=== PATIENT | female | born 1980 | race Caucasian/White ===

== ENCOUNTER 2020-06-28 10:02 | Outpatient (REF) | payer OTHER, SELFPAY ==
[2020-06-29 13:32] LABS: C. trachomatis RNA TMA NOT DETECTED (NOT DETECTED); N. gonorrhoeae RNA TMA NOT DETECTED (NOT DETECTED)
== END 2020-06-28 10:03 | disposition home or self-care (01) ==
LOC: HO.LAB 10:02
PROVIDERS: Visit Provider Advanced Practice Midwife
DX: Z01.419 Encounter for gynecological examination (general) (routine) without abnormal findings (principal); Z20.2 Contact with and (suspected) exposure to infections with a predominantly sexual mode of transmission
CPT/HCPCS: 36415; 87491; 87591

== ENCOUNTER 2020-07-12 13:14 | Outpatient (REF) | payer OTHER, SELFPAY | END 2020-07-12 13:15 | disposition home or self-care (01) | LOC: HO.LAB 13:14 | PROVIDERS: Visit Provider Internal Medicine | DX: Z20.822 Contact with and (suspected) exposure to COVID-19 (principal) | CPT/HCPCS: 36415; C9803; U0003; U0005 ==

== ENCOUNTER 2020-07-29 09:06 | Outpatient (REF) | payer OTHER, SELFPAY ==
[2020-07-29 09:49] LABS: MANUAL DIFF FLAG NO
[2020-07-29 09:59] LABS: Glucose Urine UA NEG (NEG); Leukocyte Esterase Urine NEG (NEG); Nitrite Urine NEG (NEG); Specific Gravity - Urine >= 1.030 (1.005-1.025); Urine Blood 1+ (NEG); Urine Ketones NEG (NEG); Urine Protein NEG (NEG-TRACE)
[2020-07-29 10:01] LABS: Basophils Absolute Auto 0.1 X10*3/uL (0.0-0.2); Basophils Percent Auto 0.4 % (0-2); Eosinophils Absolute Auto 0.2 X10*3/uL (0.0-0.4); Eosinophils Percent Auto 1.6 % (0-4); Hematocrit 31.2 % (37-47); Hemoglobin 8.8 g/dl (12.0-16.0); Imm Gran Abs Auto 0.05 X10*3/uL (0.00-0.03); Imm Gran Pct Auto 0.4 % (0.0-0.4); Lymphocytes Absolute Auto 3.5 X10*3/uL (1.2-4.9); Mean Corpuscular HGB Conc 28.2 g/dl (31.0-35.0); Mean Corpuscular Hemoglobin 20.3 pg (27.0-33.0); Mean Corpuscular Volume 71.9 fL (80-98); Mean Platelet Volume 10.2 fL (9.4-12.3); Monocytes Absolute Auto 0.9 X10*3/uL (0.1-1.2); Monocytes Percent Auto 6.9 % (2-11); Neutrophils Absolute Auto 8.8 X10*3/uL (2.0-8.3); Neutrophils Percent Auto 64.7 % (45-73); Platelet Count 607 X10*3/uL (160-400); Red Blood Count 4.34 X10*6/uL (4.20-5.50); White Blood Count 13.5 X10*3/uL (4.8-10.8)
[2020-07-29 10:06] LABS: Appearance Urine CLEAR; Color Urine YELLOW
[2020-07-29 10:21] LABS: RBC Urine 0-2 /HPF (0); WBC Urine 0 /HPF (0-4)
[2020-07-29 10:31] LABS: Alanine Aminotransferase 13 U/L (0-31); Albumin Level 4.3 g/dL (3.5-5.0); Alkaline Phosphatase 87 U/L (39-117); Anion Gap 15 (12-20); Aspartate Amino Transferase 14 U/L (5-31); Bilirubin Total 0.4 mg/dL (0.0-1.0); Blood Urea Nitrogen 17 mg/dL (9-16); Calcium 9.3 mg/dL (8.4-10.2); Carbon Dioxide 24 mmol/L (22-29); Chloride 106 mmol/L (96-108); Cholesterol 170 mg/dL; Estimated Glomerular Filt Rate > 60; Glucose Fasting 92 mg/dL (60-99); HDL Cholesterol 49 mg/dL; LDL Cholesterol Calculated 98 mg/dl; Potassium 4.6 mmol/L (3.3-5.1); Sodium 140 mmol/L (135-145); Triglycerides 116 mg/dL
[2020-07-29 10:45] LABS: HIV AB/AG Nonreactive (Nonreactive); HIV Num 1 0.06 S/CO (0.00-0.99); ~HepC Num1 0.14 S/CO (0.00-0.79); ~Hepatitis C Antibody Nonreactive (Nonreactive)
[2020-07-29 10:48] LABS: HBsAGNum1 0.23 S/CO (0.00-0.99); Hepatitis B Surface Antigen Negative (Negative)
[2020-07-29 10:51] LABS: TSH reflex Free T4 4.46 uIU/mL (0.32-4.0)
[2020-07-29 11:43] LABS: Free T4 (Free Thyroxine) 0.78 ng/dL (0.71-1.85)
[2020-07-30 04:10] LABS: Syphilis Screen Nonreactive (Nonreactive)
[2020-07-30 14:01] LABS: C. trachomatis RNA TMA NOT DETECTED (NOT DETECTED)
[2020-07-30 14:02] LABS: N. gonorrhoeae RNA TMA NOT DETECTED (NOT DETECTED)
== END 2020-07-29 09:07 | disposition home or self-care (01) ==
LOC: HO.LAB 09:06
PROVIDERS: PCP Internal Medicine; Visit Provider Advanced Practice Midwife
DX: Z00.00 Encounter for general adult medical examination without abnormal findings (principal); Z20.2 Contact with and (suspected) exposure to infections with a predominantly sexual mode of transmission
CPT/HCPCS: 36415; 80053; 80061; 81001; 81003; 84439; 84443; 85025; 86780; 86803; 87340; 87389; 87491; 87591

== ENCOUNTER 2021-01-23 01:09 | Emergency (ER) | payer OTHER, SELFPAY ==
--- NOTE | ~2021-01-23 | XR_ITS ---
EXAMINATION: XR KNEE, LEFT XR ANKLE, LEFT CLINICAL INFORMATION: Fall. Pain. COMPARISON: None TECHNIQUE: 4 views of the left knee. 3 views of the left ankle. FINDINGS: Left knee: No fracture or subluxation. Compartmental joint spaces are maintained. No joint effusion. The soft tissues are unremarkable. Left ankle: No fracture or dislocation. The ankle mortise is congruent. No ankle joint effusion. The soft tissues are unremarkable. XR/XR knee LT 3V IMPRESSION: No fracture or malalignment involving the left knee or ankle.
--- NOTE | ~2021-01-23 | XR_ITS ---
EXAMINATION: XR KNEE, LEFT XR ANKLE, LEFT CLINICAL INFORMATION: Fall. Pain. COMPARISON: None TECHNIQUE: 4 views of the left knee. 3 views of the left ankle. FINDINGS: Left knee: No fracture or subluxation. Compartmental joint spaces are maintained. No joint effusion. The soft tissues are unremarkable. Left ankle: No fracture or dislocation. The ankle mortise is congruent. No ankle joint effusion. The soft tissues are unremarkable. XR/XR ankle LT 2V IMPRESSION: No fracture or malalignment involving the left knee or ankle.
[2021-01-23 01:34] VITALS: BP 139/80; PULSE 110; RESP 16; TEMP 37.1; O2SAT 100; BMI 25.4
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
== END 2021-01-23 04:23 | disposition home or self-care (01) ==
PROVIDERS: Emergency Provider Emergency Medicine; PCP Internal Medicine
DX: M25.562 Pain in left knee (principal); M25.572 Pain in left ankle and joints of left foot
CPT/HCPCS: 73562; 73600; 99283; 99284

== ENCOUNTER 2021-06-18 10:42 | Emergency (ER) | payer OTHER, SELFPAY ==
[2021-06-18 11:05] VITALS: BP 128/73; PULSE 71; RESP 18; TEMP 36.9; O2SAT 99; BMI 24.6
[2021-06-18 12:25] LABS: COVID-19 Test Positive (Negative); IDNOW Serial# 9DD0AD1C
--- NOTE | 2021-06-18 15:35 | ED_ITS ---
HPI - URI/Sore Throat General Chief Complaint: Upper Respiratory Symptoms Stated Complaint: muscle pain sore throat Time Seen by Provider: 06/18/21 15:35 Source: patient Mode of arrival: ambulatory Limitations: no limitations History of Present Illness HPI Narrative: 41 yr old female presents requesting covid testing. She is experiencing a sore throat, headache, body aches, fatigue, dry cough x3 days. She has had multiple sick contacts at work recently. Fully vaccinated with two doses of pfizer. Denies SOB, CP, MARES, weakness. Eating and drinking well. In good spirits. No other complaints at this time. As she was sitting here in the waiting room were called her to let her know that she was COVID positive. Denies all red flag symptoms pertaining to headache such as vision changes, dizziness, trauma to the head. MD elicited complaint: cough and sore throat Onset (ago): day(s) (Three) Consistency: constant Severity: moderate Able to tolerate fluids by mouth: Yes Exacerbating factors: nothing Relieving factors: nothing Context: sick contacts (At work) Associated symptoms: myalgias, headache and sore throat Treatments prior to arrival: none Related Data Previous Rx's Medication Instructions Recorded benzonatate 100 mg capsule 100 mg PO BID PRN #30 cap 06/18/21 Allergies Allergy/AdvReac Type Severity Reaction Status Date / Time No Known Allergies Allergy Verified 06/18/21 11:05 Review of Systems Review of Systems: Constitutional : no Fever, positive Chills, positive fatigue, positive Malaise ENT/Mouth : positive sore throat, no runny nose Eyes: No Discharge Cardiovascular : No Chest Pain, No SOB Respiratory : No Cough, No Sputum Gastrointestinal : No Nausea, No Vomiting, No Diarrhea Genitourinary : No Dysuria, No Urinary Frequency Musculoskeletal : positive Myalgia Skin : No rash Neuro : No Headache Yes all other systems are reviewed and are negative [facility] Past Medical History Attestation statement: The following information was validated with the patient. Source: old records reviewed and nursing notes reviewed Medical History No significant past medical history Surgical History History of section History of tubal ligation Family History Family History (Updated 06/28/20 @ 10:31 by Elisha King CNM) Father Medical history unknown Mother Breast cancer, Onset Age: 58 Diabetes Hypertension Maternal Uncle Cancer Social History Social History (Updated 06/28/20 @ 10:07 by RUTHY Miguel) Alcohol intake: never Patient Tobacco Use Status: Never used Tobacco Advance Directives: No Advance Directives Information Provided: No Patient : No Gender identity: Female Physical Exam Vital Signs: Vital Signs: Last Vital Signs Temp 98.4 F 06/18/21 11:05 Pulse 71 06/18/21 11:05 Resp 18 06/18/21 11:05 BP 128/73 06/18/21 11:05 Pulse Ox 99 06/18/21 11:05 BMI result Body Mass Index 24.6 VSS Appearance: Alert.? Oriented X3.? No acute distress.? Head: Normocephalic, atraumatic, no step-offs or deformities Eyes: Pupils equal, round and reactive to light.?.? Neck: Normal inspection.? Neck supple.? CVS: Normal heart rate and rhythm.? Pulses normal.? Respiratory: No respiratory distress.? Breath sounds normal.? Abdomen: Soft and nontender.? Skin: Skin warm and dry.? Normal skin color.? Normal skin turgor.? Extremities: No lower extremity edema.? No calf ttp. 5/5 strength to bilateral upper and lower extremities Neuro: Oriented X 3.? No motor deficit.? No sensory deficit. Course Reevaluation(s) Reevaluation #1: Patient is noted to be COVID positive.? Vital signs are stable however.? I have given patient strict return precautions.? I have educated on diagnosis and treatment plan.? I have given them red flag symptoms and have told him to return with new or worsening symptoms.? I have outlined these on their discharge. Unlikely that this is ACS, patient denies chest pain. Lungs are clear unlikely pneumonia. Patient's vital signs stable, patient is not tachycardic, tachypneic or hypoxic, no calf tenderness to palpation, unlikely PE. Time: 15:44 MDM - URI/Sore Throat MDM Narrative Medical decision making narrative: [id number] 41 year old female presents for covid testing. Fully vaccinated. Experiencing sore throat, headache, body aches. Sick contacts Physical exam benign Plan at this time is to obtain a COVID test Medical Records Attestation: I reviewed the patient's medical records. Lab Data Attestation: I reviewed the patient's lab results. Labs: Lab Results 06/18/21 Range/Units 11:47 COVID-19 (RACHEL) Positive A (Negative) COVID-19 Clin Com See Note Critical Care Time Critical Care Time Critical Care Time: No Discharge Plan Discharge Clinical Impression: COVID-19 Patient Disposition: Home, Self-Care Instructions: COVID-19 (Coronavirus Disease 2019) (ED) Additional Instructions: Take your medications as prescribed.? If you were prescribed antibiotics today, it is important that you take your medication to their entirety, do not skip any doses, do not finish them early. Follow-up with your primary care provider/adjustment clerk this week. Return to the emergency department with new or worsening symptoms. In case of emergency call 911? You tested positive for COVID-19 today. -Isolate/quarantine for 5 days, continue wearing a mask for 5 days after.Before leaving quarantine ensure you are fever free and symptom free for at least 72 hours. Stay home, social distance, clean all surfaces. If you experience chest pain, shortness of breath, weakness, high fevers/chills, headache or dizziness please go to an emergency department for evaluation. - You can purchase a pulse oximeter at a local pharmacy or grocery store to check your oxygen levels at home if they go below 94%? please go to the emergency department or see a medical professional. Drink plenty of fluids, and rest. - If you can tolerate these medications, and if you are not allergic to them or have any contraindications to taking them you can take ibuprofen every 6 hours, tylenol every 4 as needed for body aches/fever. -Call 911 in case of an emergency, or go to an emergency department. -Stay safe! Prescriptions: New benzonatate 100 mg capsule 100 mg PO BID PRN (Reason: cough) Qty: 30 RF: 0 Referrals: Carson Jaramillo MD [Primary Care Provider] - 2 days Stand Alone Forms: Work/School Release
== END 2021-06-18 15:55 | disposition home or self-care (01) ==
PROVIDERS: Emergency Provider Emergency Medicine; PCP Internal Medicine
DX: U07.1 COVID-19 (principal)
CPT/HCPCS: 87635; 99283

== ENCOUNTER 2025-02-16 18:47 | Emergency (ER) | payer OTHER, SELFPAY ==
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
--- NOTE | ~2025-02-16 | CT_ITS ---
CLINICAL HISTORY: abdominal pain CT abdomen and pelvis with contrast Comparison: None provided. Findings: No acute findings within visualized lung bases. Liver, spleen, adrenal glands, and kidneys are unremarkable. Cholelithiasis. Gallbladder is otherwise nondistended. Unremarkable urinary bladder. Retroverted uterus. Small amount of free pelvic fluid. Suspected corpus luteum cyst on the left side. Visualized vascular structures are unremarkable. Stomach is nondistended. Small bowel is normal caliber. No obstruction. Colon appears within normal limits. No acute appendicitis. No pathologically enlarged lymph nodes. No acute osseous abnormality. Impression: 1. Free pelvic fluid perhaps large volume than what would be expected for normal physiologic finding therefore possibility of an adnexal cyst rupture may be considered. If there is degree of clinical concern for pelvic etiology of patient's symptoms, consider further evaluation with pelvic ultrasound. 2. Additional findings as above. This document has been electronically signed by: Stacey Junior MD on 02/17/2025 01:46:37
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
[2025-02-16 19:14] VITALS: BP 148/82; PULSE 89; O2SAT 100
[2025-02-16 19:21] VITALS: BP 143/89; PULSE 96; RESP 16; TEMP 36.4; O2SAT 100; BMI 26.9
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
[2025-02-16 20:14] LABS: MANUAL DIFF FLAG NO
[2025-02-16 20:16] LABS: Hematocrit 30.2 % (37.0-47.0); Hemoglobin 8.7 g/dl (12.0-16.0); Imm Gran Abs Auto 0.15 X10*3/uL (0.00-0.03); Imm Gran Pct Auto 0.6 % (0.0-0.4); Lymphocytes Absolute Auto 2.9 X10*3/uL (1.2-4.9); Mean Corpuscular HGB Conc 28.8 g/dl (31.0-35.0); Mean Corpuscular Hemoglobin 19.5 pg (27.0-33.0); Mean Corpuscular Volume 67.7 fL (80.0-98.0); NRBC Abs Auto 0.000 X10*3/uL (0.0-0.012); NRBC Pct Auto 0.0 /100WBC (0.0-0.2); Platelet Count 614 X10*3/uL (160-400); Red Blood Count 4.46 X10*6/uL (4.20-5.50); White Blood Count 24.3 X10*3/uL (4.8-10.8)
--- NOTE | 2025-02-16 21:26 | PC.NURSE ---
called pharmacy as [facility] did not have 20 mL lidocaine, order changed to 10 mL, provider aware, medication given to provider.
--- OUTSIDE RECORDS SUMMARY | 2025-02-16 21:54 | XMS_ITS | Clinical Summary ---
Author Organization [facility] Address [address] [place] [id number] Phone Care Team Providers Care Binder And Wrapper Packer Name Role Phone Pcp, Unknown Primary Care Provider Unavailabl e Social History Tobacco Use Types Packs/Day Years Used Date Smoking Tobacco: Never Assessed Education Answer Date Recorded Are you interested in more education? Not on joe e 09/29/2022 Are you concerned about learning? Not on file 09/29/2022 No 09/29/2022 No 09/29/2022 Digital Access Answer Date Recorded No 10/31/2022 No 10/31/2022 Reliable internet access at home? Not on file 10/31/2022 Device with a working camera? Not on file Comments Unknown Sex and Gender Information Value Date Recorded Sex Assigned at Not on file Legal Sex Female 4:18 PM EDT Gender Identity Not on file Sexual Orientation Not on file Plan of Treatment Not on file Medical Devices Not on file Care Teams Binder And Wrapper Packer Relationship Specialty Start Date End Date Pcp, Unknown PCP - General 10/21/19 Additional Source Comments The information contained in this document represents components of the legal health record. It is not the complete legal health record.[facility]
[2025-02-16] MEDS: Lidocaine HCl 1%/Epi 1:100,000 10 ML VIAL INFILTRATI (23:17)
[2025-02-16] MEDS: iohexoL 350 MG/ML 100 ML INFUS..BTL 85 ML IV (23:42)
--- NOTE | 2025-02-16 23:56 | PC.NURSE ---
pt L elbow irrigated with NS and wrapped stick pad.
--- NOTE | 2025-02-17 01:00 | PC.NURSE ---
pt request something for pain, provider aware.
--- NOTE | 2025-02-17 01:21 | PC.NURSE ---
pt medicated per MAR.
[2025-02-17 02:10] VITALS: BP 120/78; PULSE 95; RESP 16; TEMP 36.8; O2SAT 100
== END 2025-02-17 02:14 | disposition home or self-care (01) ==
PROVIDERS: Emergency Provider Student in an Organized Health Care Education/Training Program; PCP Internal Medicine
DX: S40.812A Abrasion of left upper arm, initial encounter (principal); M25.562 Pain in left knee; V23.49XA Other motorcycle driver injured in collision with car, pick-up truck or van in traffic accident, initial encounter; Y93.89 Activity, other specified; Y92.488 Other paved roadways as the place of occurrence of the external cause; Y99.8 Other external cause status
CPT/HCPCS: 36415; 70450; 72125; 73080; 73502; 73560; 74177; 85025; 99284; 99285; J2004; Q9967

== ENCOUNTER → 2025-02-16 20:22 | Outpatient (BNV) | payer OTHER, SELFPAY | PROVIDERS: Emergency Provider Student in an Organized Health Care Education/Training Program; PCP Internal Medicine; Visit Provider Radiology Diagnostic Radiology | DX: M25.552 Pain in left hip (principal); S40.812A Abrasion of left upper arm, initial encounter; S80.212A Abrasion, left knee, initial encounter; V89.2XXA Person injured in unspecified motor-vehicle accident, traffic, initial encounter | CPT/HCPCS: 70450; 72125; 73080; 73502; 73560; 74177 ==

== ENCOUNTER 2025-02-19 20:34 | Emergency (ER) | payer OTHER, SELFPAY ==
[2025-02-19 21:15] VITALS: BP 138/75; PULSE 90; RESP 18; TEMP 36.8; O2SAT 100; BMI 28.1
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
--- OUTSIDE RECORDS SUMMARY | 2025-02-19 21:53 | XMS_ITS | Clinical Summary ---
Author Organization [facility] Address [address] [place] [phone] Phone Care Team Providers Care Environmental Monitoring Technician Name Role Phone Pcp, Unknown Primary Care [...] Medical Devices Not on file Care Teams Environmental Monitoring Technician Relationship Specialty Start Date End Date Pcp, Unknown PCP - General 10/21/19 Additional Source Comments The information contained in this document represents components of the legal health record. It is not the complete legal health record.[facility]
[2025-02-19 22:24] VITALS: BP 138/75; PULSE 90; RESP 18; TEMP 36.8; O2SAT 100
== END 2025-02-19 22:24 | disposition home or self-care (01) ==
PROVIDERS: Emergency Provider Emergency Medicine; PCP Internal Medicine
DX: L03.114 Cellulitis of left upper limb (principal)
CPT/HCPCS: 99282; 99283

== ENCOUNTER 2025-02-21 15:43 | Emergency (ER) | payer OTHER, SELFPAY ==
--- NOTE | ~2025-02-21 | US_ITS ---
CLINICAL HISTORY: post traumatic swelling, r o dvt Left upper extremity venous duplex ultrasound Study was performed using color and spectral waveform analysis. Comparison: None. Findings: Deep veins are compressible with flow and augmentation. No significant adenopathy. Impression: No evidence for DVT This document has been electronically signed by: Malik Montez MD on 02/21/2025 19:37:28
[2025-02-21 16:05] VITALS: BP 132/67; PULSE 91; RESP 18; TEMP 36.6; O2SAT 100; BMI 28.3
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
--- OUTSIDE RECORDS SUMMARY | 2025-02-21 16:33 | XMS_ITS | Clinical Summary ---
Author Organization [facility] Address [address] [place] [phone] Phone Care Team Providers Care Institutional Commodity Analyst Name Role Phone Pcp, Unknown Primary Care [...] Medical Devices Not on file Care Teams Institutional Commodity Analyst Relationship Specialty Start Date End Date Pcp, Unknown PCP - General 10/21/19 Additional Source Comments The information contained in this document represents components of the legal health record. It is not the complete legal health record.[facility]
[2025-02-21] MEDS: oxyCODONE HCl Immed Release 5 MG TABLET PO (17:06)
--- NOTE | 2025-02-21 17:15 | PC.NURSE ---
Pt s/p ASSISTED. Here for wound check to Lt knee. Serous drainage. No erythema/purulent drainage.
--- NOTE | 2025-02-21 17:47 | PC.NURSE ---
Bacitracin applied to left knee. Dressed and wrapped per provider order
[2025-02-21 21:49] VITALS: BP 125/62; PULSE 94; RESP 16; TEMP 36.8; O2SAT 100
[2025-02-21 22:44] VITALS: BP 125/62; PULSE 94; RESP 16; TEMP 36.8; O2SAT 100
== END 2025-02-21 22:45 | disposition home or self-care (01) ==
PROVIDERS: Emergency Provider Emergency Medicine Emergency Medical Services; PCP Internal Medicine
DX: L03.90 Cellulitis, unspecified (principal); M79.89 Other specified soft tissue disorders; Z48.00 Encounter for change or removal of nonsurgical wound dressing
CPT/HCPCS: 93971; 96372; 99284

== ENCOUNTER → 2025-02-21 16:52 | Outpatient (BNV) | payer OTHER, SELFPAY | PROVIDERS: Emergency Provider Emergency Medicine Emergency Medical Services; PCP Internal Medicine; Visit Provider Radiology Diagnostic Radiology | DX: R22.32 Localized swelling, mass and lump, left upper limb (principal) | CPT/HCPCS: 93971 ==

== ENCOUNTER 2025-02-23 14:54 | Outpatient (AMB) | payer OTHER, SELFPAY ==
[2025-02-23 15:09] VITALS: BP 118/86; PULSE 93; TEMP 36.3; O2SAT 100; BMI 28.1
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
== END 2025-02-23 15:41 | disposition home or self-care (01) ==
LOC: HO.HMCH 14:55
PROVIDERS: PCP Internal Medicine; Visit Provider Internal Medicine
DX: M25.512 Pain in left shoulder (principal); S40.812A Abrasion of left upper arm, initial encounter; S80.812A Abrasion, left lower leg, initial encounter; Z04.3 Encounter for examination and observation following other accident; V89.2XXA Person injured in unspecified motor-vehicle accident, traffic, initial encounter

== ENCOUNTER → 2025-02-23 14:54 | Outpatient (BNVA) | payer OTHER, SELFPAY | PROVIDERS: PCP Internal Medicine; Visit Provider Internal Medicine | DX: Z00.00 Encounter for general adult medical examination without abnormal findings (principal); M54.50 Low back pain, unspecified; R79.89 Other specified abnormal findings of blood chemistry; Z87.828 Personal history of other (healed) physical injury and trauma | CPT/HCPCS: 96127 ==

== ENCOUNTER 2025-03-02 11:42 | Emergency (ER) | payer OTHER, SELFPAY ==
[2025-03-02 12:01] VITALS: BP 122/73; PULSE 100; RESP 16; TEMP 36.7; O2SAT 100; BMI 27.3
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
[2025-03-02 12:40] VITALS: BP 122/73; PULSE 100; RESP 16; TEMP 36.7; O2SAT 100
--- OUTSIDE RECORDS SUMMARY | 2025-03-02 13:45 | XMS_ITS | Clinical Summary ---
Author Organization [facility] Address [address] [place] [id number] Phone Care Team Providers Care Reading Tutor Name Role Phone Pcp, Unknown Primary Care [...] Medical Devices Not on file Care Teams Reading Tutor Relationship Specialty Start Date End Date Pcp, Unknown PCP - General 10/21/19 Additional Source Comments The information contained in this document represents components of the legal health record. It is not the complete legal health record.[facility]
== END 2025-03-02 12:42 | disposition home or self-care (01) ==
PROVIDERS: Emergency Provider Emergency Medicine; PCP Internal Medicine
DX: Z48.02 Encounter for removal of sutures (principal)
CPT/HCPCS: 99282

== ENCOUNTER 2025-03-02 12:48 | Outpatient (REF) | payer OTHER, SELFPAY ==
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
== END 2025-03-02 12:49 | disposition home or self-care (01) ==
LOC: HO.XRAY 12:48
PROVIDERS: PCP Internal Medicine; Visit Provider Internal Medicine
DX: T14.8XXD Other injury of unspecified body region, subsequent encounter (principal); V89.2XXD Person injured in unspecified motor-vehicle accident, traffic, subsequent encounter
CPT/HCPCS: 73030

== ENCOUNTER → 2025-03-02 12:55 | Outpatient (BNV) | payer OTHER, SELFPAY | PROVIDERS: PCP Internal Medicine; Visit Provider Radiology Diagnostic Radiology | DX: S42.92XD Fracture of left shoulder girdle, part unspecified, subsequent encounter for fracture with routine healing (principal); V89.2XXD Person injured in unspecified motor-vehicle accident, traffic, subsequent encounter | CPT/HCPCS: 73030 ==

== ENCOUNTER 2025-03-09 13:01 | Outpatient (AMB) | payer OTHER, SELFPAY ==
[2025-03-09 13:09] VITALS: BMI 27.3
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
--- OUTSIDE RECORDS SUMMARY | 2025-03-09 15:22 | XMS_ITS | Clinical Summary ---
Author Organization [facility] Address [address] [place] [id number] Phone Care Team Providers Care Office Manager Receptionist Name Role Phone Pcp, Unknown Primary Care [...] Medical Devices Not on file Care Teams Office Manager Receptionist Relationship Specialty Start Date End Date Pcp, Unknown PCP - General 10/21/19 Additional Source Comments The information contained in this document represents components of the legal health record. It is not the complete legal health record.[facility]
== END 2025-03-09 13:45 | disposition home or self-care (01) ==
LOC: HO.HOS 13:02
PROVIDERS: PCP Internal Medicine; Visit Provider Physician Assistant
DX: S42.255A Nondisplaced fracture of greater tuberosity of left humerus, initial encounter for closed fracture (principal)
CPT/HCPCS: 99203; G2211

== ENCOUNTER 2025-03-09 13:01 | Outpatient (REF) | payer OTHER, SELFPAY ==
--- NOTE | ~2025-03-09 | XR_ITS ---
EXAMINATION: XR SHOULDER, LEFT CLINICAL INFORMATION: M25.512 - Pain in left shoulder COMPARISON: None available. TECHNIQUE: Two views of the left shoulder. FINDINGS: Redemonstrated nondisplaced fracture of the greater tuberosity. Stable position and alignment. No new acute fractures seen. No dislocation. Joint spaces are maintained. Soft tissues unremarkable. XR/XR shoulder LT min 2V IMPRESSION: Stable positioning of the nondisplaced fracture of the greater tuberosity. Electronically signed by: Arsh Galan MD 03/09/2025 01:39 PM EDT
== END 2025-03-09 13:02 | disposition home or self-care (01) ==
LOC: HO.HOSX 13:01
PROVIDERS: PCP Internal Medicine; Visit Provider Physician Assistant
DX: S42.252A Displaced fracture of greater tuberosity of left humerus, initial encounter for closed fracture (principal); V23.49XA Other motorcycle driver injured in collision with car, pick-up truck or van in traffic accident, initial encounter; Y93.55 Activity, bike riding
CPT/HCPCS: 73030

== ENCOUNTER → 2025-03-09 13:13 | Outpatient (BNV) | payer OTHER, SELFPAY | PROVIDERS: PCP Internal Medicine; Visit Provider Radiology Diagnostic Ultrasound | DX: S42.255A Nondisplaced fracture of greater tuberosity of left humerus, initial encounter for closed fracture (principal) | CPT/HCPCS: 73030 ==

== ENCOUNTER 2025-04-03 13:53 | Outpatient (REF) | payer OTHER, SELFPAY ==
--- OUTSIDE RECORDS SUMMARY | 2025-04-03 14:46 | XMS_ITS | Clinical Summary ---
Author Organization [facility] Address [address] [place] [phone] Phone Care Team Providers Care Baccarat Dealer Name Role Phone Pcp, Unknown Primary Care [...] Medical Devices Not on file Care Teams Baccarat Dealer Relationship Specialty Start Date End Date Pcp, Unknown PCP - General 10/21/19 Additional Source Comments The information contained in this document represents components of the legal health record. It is not the complete legal health record.[facility]
== END 2025-04-03 13:54 | disposition home or self-care (01) ==
LOC: HO.MAMMO 13:53
PROVIDERS: PCP Internal Medicine; Visit Provider Internal Medicine
DX: Z13.89 Encounter for screening for other disorder (principal)

== ENCOUNTER 2025-04-20 09:06 | Outpatient (REF) | payer OTHER, SELFPAY ==
--- NOTE | ~2025-04-20 | XR_ITS ---
EXAMINATION: XR SHOULDER, LEFT CLINICAL INFORMATION: M25.512 - Pain in left shoulder COMPARISON: X-ray 10 6] 25 TECHNIQUE: Two views of the left shoulder. FINDINGS: Redemonstrated nondisplaced fracture of the greater tuberosity. Stable position and alignment. The fracture plane appears indistinct. No new acute fracture seen. No dislocation. Joint spaces are maintained. No abnormal soft tissue calcification. XR/XR shoulder LT min 2V IMPRESSION: Healing changes in the nondisplaced fracture of the greater tuberosity. Electronically signed by: Arsh Gaaln MD 04/20/2025 01:56 PM МАРИЯ RP
== END 2025-04-20 09:07 | disposition home or self-care (01) ==
LOC: HO.HOSX 09:06
PROVIDERS: Visit Provider Physician Assistant
DX: S42.252D Displaced fracture of greater tuberosity of left humerus, subsequent encounter for fracture with routine healing (principal)
CPT/HCPCS: 73030

== ENCOUNTER 2025-04-20 09:45 | Outpatient (AMB) | payer OTHER, SELFPAY ==
[2025-04-20 10:05] VITALS: BMI 27.3
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
== END 2025-04-20 10:42 | disposition home or self-care (01) ==
LOC: HO.HOS 09:45
PROVIDERS: PCP Internal Medicine; Visit Provider Physician Assistant
DX: S42.253A Displaced fracture of greater tuberosity of unspecified humerus, initial encounter for closed fracture (principal)
CPT/HCPCS: 99024

== ENCOUNTER → 2025-04-20 09:48 | Outpatient (BNV) | payer OTHER, SELFPAY | PROVIDERS: Visit Provider Radiology Diagnostic Ultrasound | DX: S42.255D Nondisplaced fracture of greater tuberosity of left humerus, subsequent encounter for fracture with routine healing (principal) | CPT/HCPCS: 73030 ==